=== PATIENT | female | born 1970 | race American Indian/Alaskan Native ===

== ENCOUNTER 2022-03-25 00:44 | Emergency (ER) | payer MEDICARE, OTHER ==
[~2022-03-25] VITALS: Ht 162.6 cm; Wt 69.0 kg
== END 2022-03-25 05:37 | disposition home or self-care (01) ==
LOC: ER 00:44
DX: S09.90XA Unspecified injury of head, initial encounter (principal); F10.129 Alcohol abuse with intoxication, unspecified; W19.XXXA Unspecified fall, initial encounter; Z91.018 Allergy to other foods; Z91.030 Bee allergy status
CPT/HCPCS: 99284

== ENCOUNTER 2022-06-13 08:33 | Emergency (ER) | payer OTHER, MEDICARE ==
[~2022-06-13] VITALS: Ht 167.6 cm; Wt 56.7 kg
[2022-06-13] MEDS ORDERED: GABAPENTIN600 MG PO (09:10)
[2022-06-13] MEDS ORDERED: ONDA4 PO (09:10)
[2022-06-13] MEDS ORDERED: TRAZ100 PO (09:11)
[2022-06-13] MEDS ORDERED: BUPROPION XL150 M1 PO (09:11)
[2022-06-13] MEDS ORDERED: EUTHYROX175 MC1 PO (09:11)
[2022-06-13] MEDS ORDERED: MIRT15ST PO (09:12)
[2022-06-13] MEDS ORDERED: ATOR40TA PO (09:12)
[2022-06-13] MEDS ORDERED: SUMA25 PO (09:12)
[2022-06-13] MEDS ORDERED: CAPE500 (09:15)
[2022-06-13 10:23] LABS: BASOPHILS ABSOLUTE AUTO 0.04 K/mm3 (0.00-0.23); BASOPHILS PERCENT AUTO 2 % (0-2); EOSINOPHILS ABSOLUTE AUTO 0.04 K/mm3 (0.00-0.68); EOSINOPHILS PERCENT AUTO 2 % (0-6); Hematocrit 32.9 % (33.0-51.0); Hemoglobin 11.2 g/dL (11.5-16.0); IMMATURE GRAN PERCENT AUTO 0 % (0-1); LYMPHOCYTES ABSOLUTE AUTO 0.72 K/mm3 (0.84-5.20); LYMPHOCYTES PERCENT AUTO 29 % (21-46); MONOCYTES ABSOLUTE AUTO 0.31 K/mm3 (0.16-1.47); MONOCYTES PERCENT AUTO 12 % (4-13); Mean Corpuscular HGB 31.7 pg (26.0-34.0); Mean Corpuscular Volume 93 fL (80-100); Mean Platelet Volume 11.1 fL (9.1-12.4); NEUTROPHILS PERCENT AUTO 56 % (41-73); Platelet Count 220 K/mm3 (150-400); RDW Coefficient Variation 12.1 % (11.7-14.2); RDW Standard Deviation 41.5 fL (35.1-46.3); Red Blood Cell Count 3.53 M/mm3 (3.80-5.20); White Blood Cell Count 2.51 K/mm3 (4.00-11.30)
[2022-06-13 10:53] LABS: Albumin/Globulin Ratio 1.2 (0.8-1.8); Bilirubin, Total 0.5 mg/dL (0.1-1.0); Bun/Creatinine Ratio 12.4 (12.0-20.0); Calcium, Blood 9.2 mg/dL (8.5-10.1); Creatinine, Blood 0.89 mg/dL (0.40-1.00); Globulin, Blood 3.4 g/dL (2.2-4.0); Potassium, Blood 3.9 mmol/L (3.5-5.5); Thyroid Stimulating Hormone 0.138 uIU/mL (0.360-4.800); Total Protein, Blood 7.4 g/dL (6.4-8.2)
== END 2022-06-13 11:55 | disposition home or self-care (01) ==
LOC: ER 08:33
PROVIDERS: Physician Assistant
DX: E86.0 Dehydration (principal); C18.9 Malignant neoplasm of colon, unspecified; Z88.0 Allergy status to penicillin; Z88.4 Allergy status to anesthetic agent; Z91.030 Bee allergy status; Z91.018 Allergy to other foods; Z79.899 Other long term (current) drug therapy
CPT/HCPCS: 80053; 83690; 84443; 85025; J7030